=== PATIENT | female | born 1950 | race Caucasian/White ===

== ENCOUNTER 2024-01-27 15:25 | Inpatient (IN) | payer MEDICARE ==
[~2024-01-27] VITALS: Ht 152.4 cm; Wt 80.3 kg
[2024-01-27] MEDS ORDERED: ACET-2605 PO (16:00)
[2024-01-27] MEDS ORDERED: MAGN400O6 PO (16:00)
[2024-01-27] MEDS ORDERED: MIDO5TAB4 PO (16:00)
[2024-01-27] MEDS ORDERED: ACET-868 PO (16:00)
[2024-01-27] MEDS ORDERED: GABA-532 PO (16:00)
[2024-01-27] MEDS ORDERED: LORA-259 PO (16:00)
[2024-01-27] MEDS ORDERED: ATOR20TA PO (16:00)
[2024-01-27] MEDS ORDERED: OLAN10TA3 PO (16:00)
[2024-01-27 16:26] LABS: BASOPHILS % (AUTO) 0.3 % (0.0-2.0); EOSINOPHILS # (AUTO) 0.2 K/uL (0.0-0.7); EOSINOPHILS % (AUTO) 1.1 % (0.0-6.0); HEMATOCRIT 34 % (33-45); HEMOGLOBIN 10.8 g/dL (11.5-14.8); LYMPHOCYTES # (AUTO) 1.5 K/uL (0.8-4.8); LYMPHOCYTES % (AUTO) 10.5 % (20.0-44.0); MEAN CORPUSCULAR HEMOGLOBIN 32 PG (26.0-33.0); MEAN CORPUSCULAR HGB CONC 32 g/dl (31.0-36.0); MEAN CORPUSCULAR VOLUME 100 fL (82-100); MONOCYTES % (AUTO) 6.7 % (2.0-12.0); NEUTROPHILS # (AUTO) 11.7 K/uL (1.8-8.9); NEUTROPHILS % (AUTO) 81.4 % (43.0-81.0); PLATELET COUNT (AUTO) 247 K/uL (150-450); RED BLOOD CELL COUNT(AUTO) 3.37 MIL/uL (4.0-5.2); WHITE BLOOD COUNT (AUTO) 14.3 K/uL (4.3-11.0)
[2024-01-27 16:34] LABS: CARBON DIOXIDE 26 mmol/L (21-32); CHLORIDE 100 mmol/L (98-107); CREATININE 1.2 mg/dL (0.6-1.3); GLUCOSE 103 mg/dL (74-106); POTASSIUM 3.5 mmol/L (3.5-5.1); SODIUM SERUM 133 mmol/L (136-145); UREA NITROGEN, BLOOD 21 mg/dL (7-18)
[2024-01-27 16:39] LABS: APPEARANCE,URINE Cloudy (CLEAR); BILIRUBIN,URINE Negative (NEGATIVE); BLOOD, URINE Negative Ery/uL (NEGATIVE); COLOR,URINE YELLOW (YELLOW); KETONES,URINE 15 mg/dL (NEGATIVE); LEUKOCYTE ESTERASE ,URINE Negative (NEGATIVE); NITRITE, URINE Positive (NEGATIVE); PH,URINE 5.5 (5.0-8.0); PROTEIN,URINE Negative (NEGATIVE); UGLUCOSE Negative (NEGATIVE); UROBILINOGEN,URINE 0.2 EU/dL (0.2)
[2024-01-27 16:50] LABS: ADD URINE CULTURE YES; BACTERIA,URINE Many /HPF (None Seen); SQUAMOUS EPITHELIAL CELL,UR Few /HPF (None Seen)
[2024-01-27 16:51] LABS: ALANINE AMINOTRANSFERASE 18 U/L (12-78); ALBUMIN 3.3 g/dL (3.4-5.0); ALKALINE PHOSPHATASE 65 U/L (46-116); ASPARTATE AMINOTRANSFERASE 18 U/L (15-37); BILIRUBIN,DIRECT 0.1 mg/dL (0.0-0.2); BILIRUBIN,TOTAL 0.5 mg/dL (0.2-1.0); NT-PRO BNP 97 pg/mL (0-125); TOTAL PROTEIN, SERUM 7.9 g/dL (6.4-8.2)
[2024-01-27] MEDS ORDERED: CEFTRIAXONE 1GM BAG (ER ONLY) 1 GM/50 ML PIGGYBACK IV ONE (17:30)
[2024-01-27 17:34] LABS: THYROID STIMULATING HORMONE 282.186 uIU/mL (0.358-3.74)
[2024-01-27] MEDS: AZITHROMYCIN 500 MG in IV D5W 250 ML IV ONE (17:51)
[2024-01-27] MEDS: CEFTRIAXONE 1 G in IV D5W 50 ML IV ONE (18:22)
[2024-01-27] MEDS: IV NS 0.9% 1,000 ML BAG IV ONE (19:32)
[2024-01-27 20:30] VITALS: BP 103/56; TEMP 98.5; O2SAT 98
[2024-01-27] MEDS ORDERED: MAGNESIUM HYDROXIDE 30 ML UDC PO PRN (22:00)
[2024-01-27] MEDS ORDERED: MAG HYDROX/AL HYDROX/SIMETH 30 ML UDC PO PRN (22:00)
[2024-01-27] MEDS ORDERED: ZOLPIDEM TARTRATE 5 MG TABLET PO PRN (22:00)
[2024-01-27] MEDS ORDERED: Z GUARD REMEDY 4 OZ OINT TP PRN (22:00)
[2024-01-27] MEDS ORDERED: ACETAMINOPHEN 325 MG TABLET PO PRN (22:00)
[2024-01-27] MEDS ORDERED: ONDANSETRON HCL/PF 4 MG/2 ML VIAL IVP PRN (22:00)
[2024-01-27] MEDS: ENOXAPARIN SODIUM 40 MG/0.4 ML DISP.SYRIN SQ SCH (22:56)
[2024-01-28] VITALS: BP 128/57; TEMP 98.5; O2SAT 97
[2024-01-28] MEDS ORDERED: LORAZEPAM 1 MG TABLET PO PRN (00:30)
[2024-01-28] MEDS ORDERED: ACETAMINOPHEN ES 500 MG TABLET PO PRN (00:30)
[2024-01-28] MEDS ORDERED: ACETAMINOPHEN 325 MG TABLET PO PRN (00:30)
[2024-01-28] MEDS ORDERED: MAGNESIUM HYDROXIDE 30 ML UDC PO PRN (00:30)
[2024-01-28 04:00] VITALS: BP 100/79; TEMP 98.5; O2SAT 95
[2024-01-28 08:00] VITALS: BP 105/69; TEMP 98.6; O2SAT 98
[2024-01-28 08:15] LABS: BASOPHILS # (AUTO) 0.1 K/uL (0.0-0.2); BASOPHILS % (AUTO) 0.5 % (0.0-2.0); EOSINOPHILS # (AUTO) 0.3 K/uL (0.0-0.7); EOSINOPHILS % (AUTO) 2.5 % (0.0-6.0); HEMATOCRIT 29 % (33-45); HEMOGLOBIN 9.7 g/dL (11.5-14.8); LYMPHOCYTES # (AUTO) 2.4 K/uL (0.8-4.8); LYMPHOCYTES % (AUTO) 20.2 % (20.0-44.0); MEAN CORPUSCULAR HEMOGLOBIN 33 PG (26.0-33.0); MEAN CORPUSCULAR HGB CONC 33 g/dl (31.0-36.0); MEAN CORPUSCULAR VOLUME 100 fL (82-100); MONOCYTES % (AUTO) 7.9 % (2.0-12.0); NEUTROPHILS # (AUTO) 8.3 K/uL (1.8-8.9); NEUTROPHILS % (AUTO) 68.9 % (43.0-81.0); PLATELET COUNT (AUTO) 227 K/uL (150-450); RED BLOOD CELL COUNT(AUTO) 2.94 MIL/uL (4.0-5.2); RED CELL DISTRIBUTION WIDTH 16.5 % (11.5-15.0); WHITE BLOOD COUNT (AUTO) 12.1 K/uL (4.3-11.0)
[2024-01-28] MEDS: GABAPENTIN 100 MG CAPSULE PO SCH (08:33)
[2024-01-28] MEDS: PANTOPRAZOLE 40 MG TABLET.DR PO SCH (08:33)
[2024-01-28] MEDS: OLANZAPINE 10 MG TABLET PO SCH (08:33)
[2024-01-28] MEDS: MIDODRINE HCL (5MG) 5 MG TABLET PO SCH (08:33)
[2024-01-28 08:50] LABS: CALCIUM, SERUM 7.9 mg/dL (8.5-10.1); CARBON DIOXIDE 19 mmol/L (21-32); CHLORIDE 103 mmol/L (98-107); GLUCOSE 80 mg/dL (74-106); MAGNESIUM 1.5 mg/dL (1.8-2.4); PHOSPHORUS 2.5 mg/dL (2.5-4.9); POTASSIUM 3.6 mmol/L (3.5-5.1); SODIUM SERUM 135 mmol/L (136-145); UREA NITROGEN, BLOOD 17 mg/dL (7-18)
[2024-01-28] MEDS: LEVOTHYROXINE INJ 100 MCG VIAL IV SCH (09:28)
[2024-01-28] MEDS: MAGNESIUM OXIDE 400 MG TABLET PO ONE (11:33)
[2024-01-28 12:00] VITALS: BP 116/73; TEMP 97.3; O2SAT 99
[2024-01-28 12:48] LABS: FERRITIN 208 ng/mL (8-388)
[2024-01-28] MEDS ORDERED: IOHEXOL-300 100 ML VIAL IV ONE (12:54)
[2024-01-28] MEDS ORDERED: IV NS 0.9% 250 ML IV ONE (12:54)
[2024-01-28 13:45] LABS: IRON, SERUM 23 ug/dl (50-175); TOTAL IRON BINDING CAPACITY 245 ug/dl (250-450)
[2024-01-28 16:00] VITALS: BP 121/62; TEMP 97.5; O2SAT 98
[2024-01-28 20:00] VITALS: BP 115/60; TEMP 97.6
[2024-01-28] MEDS: CEFTRIAXONE 1 G in IV D5W 50 ML IV SCH (20:45)
[2024-01-28] MEDS: AZITHROMYCIN 500 MG in IV D5W 250 ML IV SCH (21:47)
[2024-01-28] MEDS: ATORVASTATIN 10 MG TABLET PO SCH (22:10)
[2024-01-29] VITALS: BP 123/74; TEMP 98.8; O2SAT 100
[2024-01-29 04:00] VITALS: BP 108/64; TEMP 97.2; O2SAT 99
[2024-01-29 08:00] VITALS: BP 121/91; TEMP 97.5; O2SAT 90
[2024-01-29 08:00] LABS: BASOPHILS # (AUTO) 0.1 K/uL (0.0-0.2); BASOPHILS % (AUTO) 0.9 % (0.0-2.0); EOSINOPHILS # (AUTO) 0.4 K/uL (0.0-0.7); EOSINOPHILS % (AUTO) 5.3 % (0.0-6.0); HEMATOCRIT 28 % (33-45); HEMOGLOBIN 9.5 g/dL (11.5-14.8); MEAN CORPUSCULAR HEMOGLOBIN 34 PG (26.0-33.0); MEAN CORPUSCULAR HGB CONC 34 g/dl (31.0-36.0); MEAN CORPUSCULAR VOLUME 99 fL (82-100); MONOCYTES # (AUTO) 0.6 K/uL (0.1-1.30); MONOCYTES % (AUTO) 9.1 % (2.0-12.0); NEUTROPHILS # (AUTO) 3.9 K/uL (1.8-8.9); NEUTROPHILS % (AUTO) 55.7 % (43.0-81.0); PLATELET COUNT (AUTO) 241 K/uL (150-450); RED BLOOD CELL COUNT(AUTO) 2.85 MIL/uL (4.0-5.2); RED CELL DISTRIBUTION WIDTH 16.5 % (11.5-15.0); WHITE BLOOD COUNT (AUTO) 7.1 K/uL (4.3-11.0)
[2024-01-29 08:27] LABS: CALCIUM, SERUM 8.7 mg/dL (8.5-10.1); CREATININE 1.1 mg/dL (0.6-1.3); MAGNESIUM 1.5 mg/dL (1.8-2.4); PHOSPHORUS 2.9 mg/dL (2.5-4.9); POTASSIUM 3.5 mmol/L (3.5-5.1)
[2024-01-29 08:40] LABS: THYROID STIMULATING HORMONE 151.076 uIU/mL (0.358-3.74)
[2024-01-29] MEDS ORDERED: SOD FERRIC GLUC 125 MG in IV NS 0.9% 100 ML IV SCH (09:00)
[2024-01-29] MEDS: MAGNESIUM OXIDE 400 MG TABLET PO ONE (10:49)
[2024-01-29 12:00] VITALS: BP 155/85; TEMP 97.8; O2SAT 92
[2024-01-29] MEDS ORDERED: DIATR MEGLU/DIATRIZOATE SODIUM 120 ML BOTTLE (GASTROGRAPHIN) ONE (14:22)
[2024-01-29 15:06] LABS: T3, FREE 0.5 pg/mL (2.0-4.4)
[2024-01-29] MEDS: SOD FERRIC GLUC 125 MG in IV NS 0.9% 100 ML IV SCH (15:24)
[2024-01-29 16:00] VITALS: BP 123/77; TEMP 97.8; O2SAT 92
[2024-01-29 20:00] VITALS: BP 118/77; TEMP 97.7; O2SAT 98
[2024-01-30] VITALS: BP 113/73; TEMP 97.7; O2SAT 99
[2024-01-30 04:00] VITALS: BP 144/87; TEMP 98; O2SAT 98
[2024-01-30 06:57] LABS: BASOPHILS # (AUTO) 0.1 K/uL (0.0-0.2); BASOPHILS % (AUTO) 1.3 % (0.0-2.0); EOSINOPHILS # (AUTO) 0.3 K/uL (0.0-0.7); EOSINOPHILS % (AUTO) 6.5 % (0.0-6.0); HEMATOCRIT 32 % (33-45); HEMOGLOBIN 10.3 g/dL (11.5-14.8); LYMPHOCYTES # (AUTO) 1.7 K/uL (0.8-4.8); LYMPHOCYTES % (AUTO) 31.9 % (20.0-44.0); MEAN CORPUSCULAR HEMOGLOBIN 32 PG (26.0-33.0); MEAN CORPUSCULAR HGB CONC 33 g/dl (31.0-36.0); MEAN CORPUSCULAR VOLUME 99 fL (82-100); MONOCYTES # (AUTO) 0.5 K/uL (0.1-1.30); MONOCYTES % (AUTO) 8.9 % (2.0-12.0); NEUTROPHILS # (AUTO) 2.7 K/uL (1.8-8.9); NEUTROPHILS % (AUTO) 51.4 % (43.0-81.0); PLATELET COUNT (AUTO) 260 K/uL (150-450); RED BLOOD CELL COUNT(AUTO) 3.22 MIL/uL (4.0-5.2); RED CELL DISTRIBUTION WIDTH 16.9 % (11.5-15.0); WHITE BLOOD COUNT (AUTO) 5.3 K/uL (4.3-11.0)
[2024-01-30 07:23] LABS: ALANINE AMINOTRANSFERASE 16 U/L (12-78); ALBUMIN 2.9 g/dL (3.4-5.0); ALKALINE PHOSPHATASE 67 U/L (46-116); ASPARTATE AMINOTRANSFERASE 19 U/L (15-37); BILIRUBIN,DIRECT 0.1 mg/dL (0.0-0.2); BILIRUBIN,TOTAL 0.4 mg/dL (0.2-1.0); CALCIUM, SERUM 8.7 mg/dL (8.5-10.1); CARBON DIOXIDE 26 mmol/L (21-32); CHLORIDE 107 mmol/L (98-107); CREATININE 1.1 mg/dL (0.6-1.3); GLUCOSE 82 mg/dL (74-106); MAGNESIUM 1.8 mg/dL (1.8-2.4); PHOSPHORUS 2.9 mg/dL (2.5-4.9); POTASSIUM 3.7 mmol/L (3.5-5.1); SODIUM SERUM 140 mmol/L (136-145); TOTAL PROTEIN, SERUM 7.7 g/dL (6.4-8.2); UREA NITROGEN, BLOOD 11 mg/dL (7-18)
[2024-01-30 08:00] VITALS: BP 91/70; TEMP 97.7; O2SAT 100
[2024-01-30] MEDS ORDERED: DIATR MEGLU/DIATRIZOATE SODIUM 120 ML BOTTLE (GASTROGRAPHIN) ONE (11:06)
[2024-01-30 12:00] VITALS: BP 110/87; TEMP 97.5; O2SAT 97
[2024-01-30 16:00] VITALS: BP 109/74; TEMP 97.7; O2SAT 96
[2024-01-30 20:00] VITALS: BP 134/55; TEMP 98.4; O2SAT 98
[2024-01-30] MEDS: IV D5/0.45 NACL 1,000 ML IV PRN (23:24)
[2024-01-31] MEDS: LIDOCAINE 2% JEL UROJET 10 ML MM ONE (03:51)
[2024-01-31] MEDS: LIDOCAINE 2% JEL 5 ML TUBE MC ONE (03:51)
[2024-01-31 05:26] VITALS: BP 125/77; TEMP 97; O2SAT 96
[2024-01-31] MEDS: MINERAL OIL 133 ML (PYXIS) 1 EA ENEMA RC ONE (05:43)
[2024-01-31 07:09] LABS: BASOPHILS % (AUTO) 0.9 % (0.0-2.0); EOSINOPHILS # (AUTO) 0.3 K/uL (0.0-0.7); EOSINOPHILS % (AUTO) 5.5 % (0.0-6.0); HEMATOCRIT 30 % (33-45); HEMOGLOBIN 10.2 g/dL (11.5-14.8); LYMPHOCYTES # (AUTO) 1.7 K/uL (0.8-4.8); LYMPHOCYTES % (AUTO) 35.9 % (20.0-44.0); MEAN CORPUSCULAR HEMOGLOBIN 33 PG (26.0-33.0); MEAN CORPUSCULAR HGB CONC 34 g/dl (31.0-36.0); MEAN CORPUSCULAR VOLUME 97 fL (82-100); MONOCYTES # (AUTO) 0.5 K/uL (0.1-1.30); MONOCYTES % (AUTO) 10.7 % (2.0-12.0); NEUTROPHILS # (AUTO) 2.3 K/uL (1.8-8.9); PLATELET COUNT (AUTO) 275 K/uL (150-450); WHITE BLOOD COUNT (AUTO) 4.9 K/uL (4.3-11.0)
[2024-01-31] MEDS: LIOTHYRONINE SODIUM (5 MCG/TA 5 MCG TABLET PO SCH (07:30)
[2024-01-31 07:33] LABS: CALCIUM, SERUM 8.5 mg/dL (8.5-10.1); MAGNESIUM 2.3 mg/dL (1.8-2.4); PHOSPHORUS 2.7 mg/dL (2.5-4.9); POTASSIUM 4.3 mmol/L (3.5-5.1)
[2024-01-31 08:00] VITALS: BP 116/78; TEMP 97.5; O2SAT 97
[2024-01-31 08:36] LABS: THYROID STIMULATING HORMONE 228.01 uIU/mL (0.358-3.74)
[2024-01-31] MEDS ORDERED: NA PHOS,M-B/NA PHOS,DI-BA 1 EA ENEMA RC PRN (09:30)
[2024-01-31] MEDS: PEG 3350/NA SULF,BICARB,CL/KCL 4,000 ML BOTTLE PO ONE (11:06)
[2024-01-31 12:00] VITALS: BP 144/86; TEMP 97.2; O2SAT 98
[2024-01-31] MEDS ORDERED: CT SWABBABLE VALVE TRANS SET 1 EA INFUS.SET MC ONE (13:34)
[2024-01-31] MEDS ORDERED: IOHEXOL-300 100 ML VIAL IV ONE (13:34)
[2024-01-31] MEDS ORDERED: IV NS 0.9% 250 ML IV ONE (13:34)
[2024-01-31 16:00] VITALS: BP 110/76; TEMP 98.4; O2SAT 98
[2024-01-31 16:07] LABS: ABG BASE EXCESS -0.7 mmol/L; ABG OXYGEN SATURATION 94.9 % (92.0-98.5); ABG PCO2 34.4 mmHg (35.0-45.0); ABG PH 7.443 (7.350-7.450); ABG PO2 75.7 mmHg (75.0-100.0); ABG TOTAL HEMOGLOBIN 10.6 G/dL (12.0-16.0); AaDO2 32.8 mmHg; COHb 0.5 % (0.5-1.5); MetHb 0.3 % (0.0-1.5); O2Hb 94.1 % (94.0-97.0); SITE, ABG Right Radial; VENT MODE, BG room air
[2024-01-31 20:00] VITALS: BP 97/73; TEMP 97.2; O2SAT 96
[2024-02-01] VITALS (7 sets, daily range): BP systolic 98–134; BP diastolic 50–93; TEMP 97.2–98.4; O2SAT 94–99
[2024-02-01 06:46] LABS: BASOPHILS # (AUTO) 0.1 K/uL (0.0-0.2); BASOPHILS % (AUTO) 1.5 % (0.0-2.0); EOSINOPHILS # (AUTO) 0.2 K/uL (0.0-0.7); HEMATOCRIT 29 % (33-45); HEMOGLOBIN 9.7 g/dL (11.5-14.8); LYMPHOCYTES # (AUTO) 1.7 K/uL (0.8-4.8); LYMPHOCYTES % (AUTO) 40.1 % (20.0-44.0); MEAN CORPUSCULAR HEMOGLOBIN 33 PG (26.0-33.0); MEAN CORPUSCULAR HGB CONC 34 g/dl (31.0-36.0); MEAN CORPUSCULAR VOLUME 98 fL (82-100); MONOCYTES # (AUTO) 0.4 K/uL (0.1-1.30); MONOCYTES % (AUTO) 10.2 % (2.0-12.0); NEUTROPHILS # (AUTO) 1.8 K/uL (1.8-8.9); NEUTROPHILS % (AUTO) 43.2 % (43.0-81.0); PLATELET COUNT (AUTO) 256 K/uL (150-450); RED BLOOD CELL COUNT(AUTO) 2.93 MIL/uL (4.0-5.2); RED CELL DISTRIBUTION WIDTH 16.5 % (11.5-15.0); WHITE BLOOD COUNT (AUTO) 4.3 K/uL (4.3-11.0)
[2024-02-01 06:54] LABS: CALCIUM, SERUM 7.8 mg/dL (8.5-10.1); POTASSIUM 4.1 mmol/L (3.5-5.1)
[2024-02-01] MEDS: NA PHOS,M-B/NA PHOS,DI-BA 1 EA ENEMA RC ONE (18:27)
[2024-02-02 04:00] VITALS: BP 131/75; TEMP 97.5; O2SAT 98
[2024-02-02 08:00] VITALS: BP 136/98; TEMP 98.3; O2SAT 98
[2024-02-02] MEDS: LEVOTHYROXINE SODIUM 100 MCG TABLET PO SCH (08:29)
[2024-02-02] MEDS ORDERED: LACT10SO3 PO (09:08)
[2024-02-02] MEDS ORDERED: LEVO100T PO (09:08)
[2024-02-02] MEDS ORDERED: MIDO5TAB4 PO (09:08)
[2024-02-02] MEDS ORDERED: AZIT250T PO (09:18)
[2024-02-02 12:13] VITALS: BP 138/90
== END 2024-02-02 14:26 | DRG 73 ==
LOC: ER 15:33 → MEDSG1 20:15 → TELE1 21:43 → MEDSG1 01-30 12:03
PROVIDERS: ADMIT Student in an Organized Health Care Education/Training Program; ATTEND Internal Medicine
DX: G90.8 Other disorders of autonomic nervous system (principal); J15.9 Unspecified bacterial pneumonia; N39.0 Urinary tract infection, site not specified; E46 Unspecified protein-calorie malnutrition; E87.1 Hypo-osmolality and hyponatremia; I69.354 Hemiplegia and hemiparesis following cerebral infarction affecting left non-dominant side; K56.7 Ileus, unspecified; E86.0 Dehydration; D50.9 Iron deficiency anemia, unspecified; E78.5 Hyperlipidemia, unspecified; F25.9 Schizoaffective disorder, unspecified; F41.9 Anxiety disorder, unspecified; Z20.822 Contact with and (suspected) exposure to COVID-19; F31.9 Bipolar disorder, unspecified; Z68.34 Body mass index [BMI] 34.0-34.9, adult; Z85.3 Personal history of malignant neoplasm of breast; K21.00 Gastro-esophageal reflux disease with esophagitis, without bleeding; K59.00 Constipation, unspecified; E03.9 Hypothyroidism, unspecified; R53.1 Weakness; B96.20 Unspecified Escherichia coli [E. coli] as the cause of diseases classified elsewhere; R93.1 Abnormal findings on diagnostic imaging of heart and coronary circulation; W19.XXXA Unspecified fall, initial encounter; S43.005A Unspecified dislocation of left shoulder joint, initial encounter; X58.XXXA Exposure to other specified factors, initial encounter; Y93.9 Activity, unspecified; Y92.129 Unspecified place in nursing home as the place of occurrence of the external cause
CPT/HCPCS: 36415; 36600; 70450-TC; 71045-TC; 71260-TC; 74018; 74250-TC; 80048-TC; 80076-TC; 81001; 82607-TC; 82728-TC; 82962-TC; 83540-TC; 83735-TC; 83880; 84100-TC; 84439-TC; 84443-TC; 84481; 84484-TC; 85025-TC; 87081-TC; 87086-TC; 93307-TC; 97110-TC; 97112-TC; 97116-TC; 97530-TC; A4223; G0378; J0456; J0696; J1650; J2916; J3490; J7030; J7050; J7060; Q9963; Q9967